=== PATIENT | female | born 1970 | race Asian ===

== ENCOUNTER 2023-03-29 08:42 | Emergency (ER) | payer BC, OTHER ==
[~2023-03-29] VITALS: Ht 162.6 cm; Wt 88.0 kg
[2023-03-29] MEDS ORDERED: IBUPROFEN 600 MG TABLET ONE (08:59)
[2023-03-29] MEDS ORDERED: IBUPROFEN 600 MG TABLET PO ONE (09:00)
[2023-03-29] MEDS ORDERED: NAPR-1009 PO (09:20)
[2023-03-29 09:29] VITALS: BP 105/99; TEMP 98.1; O2SAT 100
== END 2023-03-29 09:33 | disposition home or self-care (01) ==
LOC: ER 08:56
DX: S20.219A Contusion of unspecified front wall of thorax, initial encounter (principal); I10 Essential (primary) hypertension; Z79.899 Other long term (current) drug therapy; V89.2XXA Person injured in unspecified motor-vehicle accident, traffic, initial encounter; Y93.89 Activity, other specified; Y92.89 Other specified places as the place of occurrence of the external cause; Y99.8 Other external cause status
CPT/HCPCS: 71045-TC